=== PATIENT | male | born 1950 | race Two or more races ===

== ENCOUNTER → 2020-07-15 | Outpatient (CLI) | payer MEDICARE | END | disposition home or self-care (01) | LOC: LAB 08:45 | PROVIDERS: ATTEND Internal Medicine | DX: Z01.812 Encounter for preprocedural laboratory examination (principal); Z20.822 Contact with and (suspected) exposure to COVID-19 | CPT/HCPCS: 87426 ==

== ENCOUNTER → 2020-07-16 | Day surgery (SDC) | payer MEDICARE ==
[~2020-07-16] MED LIST: LIDOCAINE HCL 1% 20ML VIAL (Pyxis) INJ ONE; SODIUM BICARBONATE 4% (2.4MEQ) 5ML VIAL IV ONE
== END | disposition home or self-care (01) ==
LOC: RAD 09:22 → EDUNIT# 10:00
PROVIDERS: ATTEND Internal Medicine
DX: E04.1 Nontoxic single thyroid nodule (principal); Z79.899 Other long term (current) drug therapy
CPT/HCPCS: 10005; 88172; 88173; J3490